=== PATIENT | male | born 1970 | race Caucasian/White ===

== ENCOUNTER → 2016-05-15 | Outpatient (CLI) | payer OTHER ==
[~2016-05-15] MED LIST: ALBUAER2 PO; BUPR200T2 PO; CYM30 PO; DOXA-10 PO; DOXA2TAB PO; FINA5TAB PO; GEMF600T3 PO; IBUP-1427 PO; LEVO150T9 PO; MULT-506 PO; NRN100 PO; OLAN-111 PO; OMEP40CA PO; POTA20TA16 PO; TOPI100T20 PO; ZYP20 PO
== END | disposition home or self-care (01) ==
LOC: C.LABSPEC 13:05
PROVIDERS: ATTEND Dermatology
DX: L70.9 Acne, unspecified (principal); L73.2 Hidradenitis suppurativa

== ENCOUNTER → 2016-08-08 | Outpatient (CLI) | payer OTHER ==
[2016-08-08 12:23] LABS: HEMATOCRIT 43.8 % (42-52); MEAN CORPUSCULAR HEMOGLOBIN 32.4 pg (25-34); MEAN CORPUSCULAR HGB CONC 34.5 g/dl (32-36); MEAN PLATELET VOLUME 10.9 fL (7.4-10.4); PLATELET COUNT 159 K/uL (130-400); RED BLOOD COUNT 4.66 M/uL (4.7-6.1); WHITE BLOOD COUNT 7.42 K/uL (4.8-10.8)
[2016-08-08 13:37] LABS: ALT/SGPT 34 U/L (12-78); AST/SGOT 23 U/L (15-37); BLOOD UREA NITROGEN 9 mg/dl (7-18); BUN/CREATININE RATIO 6.6 (10-20); CALCIUM 8.7 mg/dl (8.5-10.1); CARBON DIOXIDE 25 mmol/L (21-32); CHLORIDE 110 mmol/L (98-107); GLUCOSE 97 mg/dl (70-99); POTASSIUM 4.2 mmol/L (3.5-5.1); SODIUM 141 mmol/L (136-145)
[2016-08-08 13:48] LABS: ALKALINE PHOSPHATASE 99 U/L (45-117); CHOLESTEROL 179 mg/dl (0-200); CHOLESTEROL/HDL RATIO 6.6; HDL CHOLESTEROL 27 mg/dl; LDL CHOLESTEROL CALCULATED 81 mg/dl; THYROID STIMULATING HORMONE 0.316 uIu/ml (0.300-4.500); TRIGLYCERIDES 353 mg/dl (0-150); VERY LOW DENSITY LIPOPROT CALC 71 mg/dl
== END | disposition home or self-care (01) ==
LOC: C.LABBFT 10:52
PROVIDERS: ATTEND Internal Medicine
DX: E03.9 Hypothyroidism, unspecified (principal); E78.5 Hyperlipidemia, unspecified

== ENCOUNTER → 2017-01-01 | Outpatient (CLI) | payer OTHER | END | disposition home or self-care (01) | LOC: C.LABBFT 09:31 | PROVIDERS: ATTEND Urology | DX: N40.1 Benign prostatic hyperplasia with lower urinary tract symptoms (principal) ==

== ENCOUNTER → 2017-04-30 | Outpatient (CLI) | payer OTHER ==
[2017-04-30 12:25] LABS: BASO % 0.8 %; BASO ABS # 0.06 K/uL (0-0.2); EOS % 3.6 %; EOS ABS # 0.26 K/uL (0-0.5); HEMOGLOBIN 15.6 g/dL (14.0-18.0); IG# 0.02 K/uL (0.00-0.02); LYMPH % 27.7 %; LYMPH ABS # 2.02 K/uL (1.2-3.4); MEAN CELL VOLUME 93.2 fL (80-100); MEAN CORPUSCULAR HEMOGLOBIN 33.1 pg (25-34); MEAN CORPUSCULAR HGB CONC 35.5 g/dl (32-36); MEAN PLATELET VOLUME 10.9 fL (7.4-10.4); MONO ABS # 0.44 K/uL (0.11-0.59); NEUT % 61.6 %; NEUT ABS # 4.48 K/uL (1.4-6.5); PLATELET COUNT 194 K/uL (130-400); RED CELL DISTRIBUTION WIDTH CV 12.9 % (11.5-14.5); RED CELL DISTRIBUTION WIDTH SD 44.1 fL (36.4-46.3); WHITE BLOOD COUNT 7.28 K/uL (4.8-10.8)
[2017-04-30 12:58] LABS: ALT/SGPT 21 U/L (12-78); AST/SGOT 15 U/L (15-37); BLOOD UREA NITROGEN 14 mg/dl (7-18); CALCIUM 8.8 mg/dl (8.5-10.1); CARBON DIOXIDE 23 mmol/L (21-32); CREATININE 1.52 mg/dl (0.60-1.40); GLUCOSE 83 mg/dl (70-99); POTASSIUM 4.4 mmol/L (3.5-5.1); SODIUM 136 mmol/L (136-145); TOTAL PROTEIN 7.9 gm/dl (6.4-8.2)
[2017-04-30 13:08] LABS: ALKALINE PHOSPHATASE 81 U/L (45-117); CHOLESTEROL 189 mg/dl (0-200); LDL CHOLESTEROL CALCULATED 96 mg/dl
== END | disposition home or self-care (01) ==
LOC: C.LABBFT 09:57
PROVIDERS: ATTEND Nurse Practitioner
DX: E78.5 Hyperlipidemia, unspecified (principal); E03.9 Hypothyroidism, unspecified; R20.0 Anesthesia of skin

== ENCOUNTER → 2017-05-14 | Outpatient (CLI) | payer OTHER ==
[2017-05-14 09:51] LABS: BLOOD UREA NITROGEN 13 mg/dl (7-18); CARBON DIOXIDE 23 mmol/L (21-32); CREATININE 1.54 mg/dl (0.60-1.40); GLUCOSE 85 mg/dl (70-99); POTASSIUM 4.6 mmol/L (3.5-5.1); SODIUM 138 mmol/L (136-145)
== END | disposition home or self-care (01) ==
LOC: C.LAB 08:35
PROVIDERS: ATTEND Internal Medicine
DX: R79.89 Other specified abnormal findings of blood chemistry (principal)

== ENCOUNTER → 2017-05-14 | Outpatient (CLI) | payer OTHER ==
--- NOTE | 2017-05-14 10:38 | DIAGNOSTIC IMAGING REPORT ---
BILATERAL LOWER EXTREMITY ARTERIAL DOPPLER ULTRASOUND CLINICAL HISTORY: Numbness in feet. COMPARISON STUDY: Bilateral lower extremity arterial Doppler November 29, 2013. FINDINGS: The right ankle-brachial measured 1.01 when using posterior tibial and dorsalis pedis. The left measured 1.05 when using posterior tibial artery and 1.02 when using the dorsalis pedis. No elevated velocities were identified within either lower extremity. There was no significant atherosclerotic plaque. There are triphasic waveforms throughout each lower extremity. IMPRESSION: 1. Unremarkable bilateral lower extremity arterial Doppler ultrasound. No evidence of a stenosis. 2. Normal bilateral ankle to brachial indices. Electronically signed by: Daniel Medina M.D. 05/14/2017 10:36 AM Dictated Date/Time: 05/14/2017 10:31 AM
== END | disposition home or self-care (01) ==
LOC: C.ULTR 08:31
PROVIDERS: ATTEND Nurse Practitioner
DX: R20.0 Anesthesia of skin (principal)

== ENCOUNTER → 2017-08-27 | Outpatient (CLI) | payer OTHER ==
[~2017-08-27] MED LIST changes: +POTA-639 PO; -POTA20TA16 PO
[2017-08-27 12:39] LABS: BLOOD UREA NITROGEN 13 mg/dl (7-18); CALCIUM 8.7 mg/dl (8.5-10.1); CARBON DIOXIDE 23 mmol/L (21-32); CREATININE 1.48 mg/dl (0.60-1.40); GLUCOSE 85 mg/dl (70-99); POTASSIUM 4.5 mmol/L (3.5-5.1); SODIUM 141 mmol/L (136-145)
== END ==
LOC: C.LABBFT 09:07
PROVIDERS: ATTEND Internal Medicine
DX: R79.89 Other specified abnormal findings of blood chemistry (principal)

== ENCOUNTER → 2017-11-21 | Outpatient (CLI) | payer OTHER ==
[~2017-11-21] MED LIST changes: -GEMF600T3 PO; +GEMF600T5 PO
[2017-11-21 12:57] LABS: BLOOD UREA NITROGEN 13 mg/dl (7-18); CREATININE 1.24 mg/dl (0.60-1.40)
== END | disposition home or self-care (01) ==
LOC: C.LABBFT 08:50
PROVIDERS: ATTEND Urology
DX: N40.0 Benign prostatic hyperplasia without lower urinary tract symptoms (principal); Z12.5 Encounter for screening for malignant neoplasm of prostate